=== PATIENT | male | born 1940 | race Caucasian/White ===

== ENCOUNTER 2016-09-19 07:56 | Outpatient (CLI) | payer OTHER ==
--- NOTE | 2016-09-19 10:12 | DIAGNOSTIC IMAGING REPORT ---
PROCEDURE: CT ABD/PELVIS WITH CONTRAST CLINICAL INDICATION: HERNIA TECHNIQUE: 125 ml of Isovue 300 were injected intravenously and axial images were obtained of the entire abdomen and pelvis with sagittal and coronal reformations. COMPARISON: None. FINDINGS: ABDOMEN: There is a 21 cm midline ventral hernia (neck 17.5 cm) which increases with Valsalva, containing large and small bowel without any evidence of obstruction. Minor lingular and left basilar scarring. Normal heart size. Hepatic steatosis. A 5 mm hypoenhancing left hepatic lobe lesion, indeterminate. The gallbladder, pancreas, spleen and adrenal glands are normal. Bilateral renal cysts, largest on the right and 4.8 cm and on the left 3.8 cm. Mild atherosclerosis of the aorta. Mild transverse and descending colon diverticulosis. Moderate hiatal hernia. PELVIS: Appendix not identified but no evidence of acute appendicitis. Mild sigmoid diverticulosis. Enlarged prostate (6.2 cm). Normal bladder. No pelvic mass, free fluid or inflammatory changes. Moderate degenerative changes of the spine. IMPRESSION: 1. 21 cm midline ventral hernia (neck 17.5 cm) containing small and large bowel without evidence of obstruction. 2. Hepatic steatosis 3. Bilateral renal cysts 4. Mild diverticulosis 5. Enlarged prostate All CT scans at this facility use dose modulation, iterative reconstruction, and/or weight-based dosing when appropriate to reduce radiation dose to as low as reasonably achievable.
== END 2016-09-19 23:00 ==
LOC: CT SRH 07:56
DX: K43.9 Ventral hernia without obstruction or gangrene (principal); K76.0 Fatty (change of) liver, not elsewhere classified; N28.1 Cyst of kidney, acquired